=== PATIENT | male | born 1935 | race Caucasian/White ===

== ENCOUNTER 2019-08-16 14:55 | Emergency (ER) | payer OTHER, BC ==
[~2019-08-16] VITALS: Ht 177.8 cm; Wt 98.4 kg
--- NOTE | 2019-08-16 14:58 | NUR ---
BIBRA 89, C/O CHEST PAIN FROM [place], AND UPPER BACK AND NECK PAIN, +AB, -KO, 4/0 PS, TO ER BED 10, HOOKED TO MONITOR, PROVIDED W WARM BLANKET, AWAITING MD JASMINE.
--- NOTE | 2019-08-16 15:00 | NUR ---
DR OROSCO AT BEDSIDE
[2019-08-16 15:43] LABS: BASOPHILS % (AUTO) 0.3 % (0.0-2.0); EOSINOPHILS % (AUTO) 0.9 % (0.0-6.0); HEMATOCRIT 46 % (39-51); HEMOGLOBIN 15.3 g/dL (13.5-17.5); LYMPHOCYTES # (AUTO) 0.5 /CMM (0.8-4.8); LYMPHOCYTES % (AUTO) 4.4 % (20.0-44.0); MEAN CORPUSCULAR HGB CONC 34 g/dl (31.0-36.0); MEAN CORPUSCULAR VOLUME 98 fL (80-96); MONOCYTES # (AUTO) 0.6 /CMM (0.1-1.30); MONOCYTES % (AUTO) 5.6 % (2.0-12.0); NEUTROPHILS # (AUTO) 9.3 /CMM (1.8-8.9); NEUTROPHILS % (AUTO) 88.8 % (43.0-81.0); PLATELET COUNT (AUTO) 230 /CMM (150-450); RED BLOOD CELL COUNT(AUTO) 4.68 MIL/uL (4.5-6.0); WHITE BLOOD COUNT (AUTO) 10.4 K/uL (4.3-11.0)
[2019-08-16] MEDS ORDERED: ACETAMINOPHEN ES 500 MG TABLET PO ONE (16:00)
[2019-08-16 16:25] LABS: CALCIUM, SERUM 9.4 mg/dL (8.5-10.1); CARBON DIOXIDE 29 mmol/L (21-32); CHLORIDE 99 mmol/L (98-107); CREATININE 1.4 mg/dL (0.6-1.3); GLUCOSE 107 mg/dL (74-106); POTASSIUM 3.9 mmol/L (3.5-5.1); SODIUM SERUM 137 mmol/L (136-145); UREA NITROGEN, BLOOD 25 mg/dL (7-18)
--- NOTE | 2019-08-16 17:15 | NUR ---
Patient discharged to home in stable condition. Written and verbal after care instructions given. Patient verbalizes understanding of instruction.
[2019-08-16 17:20] VITALS: BP 159/85
== END 2019-08-16 17:21 | disposition home or self-care (01) ==
LOC: ER 15:03
DX: S23.3XXA Sprain of ligaments of thoracic spine, initial encounter (principal); S20.212A Contusion of left front wall of thorax, initial encounter; I10 Essential (primary) hypertension; E03.9 Hypothyroidism, unspecified; V49.49XA Driver injured in collision with other motor vehicles in traffic accident, initial encounter; Y93.89 Activity, other specified; Y92.413 State road as the place of occurrence of the external cause; Y99.8 Other external cause status
CPT/HCPCS: 36415; 71045-TC; 72128-TC; 80048-TC; 84484-TC; 85025-TC